=== PATIENT | female | born 1955 | race Two or more races ===

== ENCOUNTER 2017-06-10 08:24 | Outpatient (CLI) | payer OTHER ==
--- NOTE | 2017-06-10 09:14 | Diagnostic Imaging Report ---
Indications: Sinusitis and cough Technique: Spiral images obtained through the maxillofacial sinuses. No IV contrast utilized. Multiplanar reconstructions were generated.Total dose length product 526.47 mGycm. CTDIvol(s) 28.19 mGy. Dose reduction achieved using automated exposure control Comparison: none Findings: There is circumferential mucosal thickening of the bilateral maxillary sinuses. This appears to occlude the bilateral maxillary ostia. There is mucosal thickening of multiple ethmoid air cells. There is minimal mucosal thickening of the right sphenoid sinus. The frontal sinuses are clear. The nasal septum demonstrates only minimal rightward deviation anteriorly. The included orbits and optic globes are unremarkable. The facial No facial soft tissues appear unremarkable. There are questionable dental caries of the left first maxillary premolar and the left second maxillary molar and possibly the right first mandibular molar, although streak artifact from adjacent dental amalgam could be responsible for this appearance. The dentition is otherwise intact. No evidence of apical root abscess. The included intracranial structures appear unremarkable. Impression: Maxillary, ethmoid, and trace sphenoid sinus mucosal disease, as described Apparent occlusion of the bilateral maxillary ostia secondary to the above Questionable dental caries versus artifact. Correlate with clinical findings The CT scanner at [facility] is accredited by the [employer] and the scans are performed using protocols designed to limit radiation exposure to as low as reasonably achievable to attain images of sufficient resolution adequate for diagnostic evaluation.
== END 2017-06-10 10:24 | disposition home or self-care (01) ==
LOC: CAT 08:24
DX: J32.9 Chronic sinusitis, unspecified (principal)
CPT/HCPCS: 70486

== ENCOUNTER 2017-07-13 06:18 | Day surgery (SDC) | payer OTHER ==
--- NOTE | 2017-07-12 18:05 | Pre-Procedure Note/Attestation ---
Pre-Procedure Note/Attestation Complete Prior to Procedure Planned Procedure: bilateral Procedure Narrative: 1. Bilateral endoscopic sinus surgery 2. Septoplasty 3. Submucous resection right inferior turbinate 4. Submucous resection left inferior turbinate 5. Bilateral nasal antral windows Indications for Procedure Pre-Operative Diagnosis: 1. Chronic sinus blockage 2. Nasal septal deviation 3. Hypertrophied right inferior turbinate 4. Hypertrophied left inferior turbinate 5. Chronic sinus disease Attestation I attest that I discussed the nature of the procedure; its benefits; risks and complications; and alternatives (and the risks and benefits of such alternatives ), prior to the procedure, with the patient (or the patient's legal associate financial representative). I attest that, if there was a reasonable possibility of needing a blood transfusion, the patient (or the patient's legal associate financial representative) was given the [facility] standardized written summary, pursuant to the [place] Blood Safety Act ([place] Health and Safety Code # 1645, as amended). I attest that I re-evaluated the patient just prior to the surgery and that there has been no change in the patient's H&P, dictated by pts PMD, which has been sent to [facility] [employer]. RENETTA MAYFIELD July 12, 2017 18:05
--- NOTE | 2017-07-12 18:08 | Brief Operative Note ---
Immediate Post Operative Note Operative Note Chief Complaint: Chroinic headache, face pain Pre-op Diagnosis: 1. Chronic sinus blockage 2. Nasal septal deviation 3. Hypertrophied right inferior turbinate 4. Hypertrophied left inferior turbinate 5. Chronic sinus disease Procedure: 1. Bilateral endoscopic sinus surgery 2. Septoplasty 3. Submucous resection right inferior turbinate 4. Submucous resection left inferior turbinate 5. Bilateral nasal antral windows Post-op Diagnosis: same as pre-op Surgeon: Renetta Mayfield Manager Interventional: none Additional Surgeons: none Anesthesiologist: Jaycee Anesthesia: general Specimen: yes Complications: none Condition: stable Fluids: D5LR Estimated Blood Loss: volume - 30cc Drains: none Packing: Stamberger nasal gel Implant(s) used?: No RENETTA MAYFIELD July 12, 2017 18:08
--- NOTE | 2017-07-12 18:10 | Discharge Instructions ---
Discharge Instructions Discharge Instructions Follow up with: Dr. Mayfield next week-pt has appt already Diet: regular Resume Normal Activity?: No Activity: light activity Pneumonia Vaccine: pt refused vaccine Influenza Vaccine (Nov to Apr): pt refused vaccine Follow Up Orders Pt has printed post op instructions-which I reviewed and gave her at her pre op visit last week along with Rx for Amox and [place]. Return to Work/School on: Jul 27, 2017 Special Instructions Ice to face x 48 hours For Surgical Patients Dressing Care: may change May shower: No For Congestive Heart Failure Reminder Report to your physician any weight gain of 5 pounds or more in one week. RENETTA MAYFIELD July 12, 2017 18:10
[~2017-07-13] VITALS: Ht 162.6 cm; Wt 80.7 kg
[2017-07-13] VITALS (20 sets, daily range): BP systolic 121–174; BP diastolic 69–106
[2017-07-13] MEDS ORDERED: EPINEPHrine 1mg/1ml Amp ONE (07:05)
[2017-07-13] MEDS ORDERED: Bupivacaine 0.5% Inj 30 ml vial INJ ONE (07:05)
[2017-07-13] MEDS ORDERED: Lidocaine 1% 10mg/ml/Epi 0.005mg/ml 30ml vial INJ ONE (07:05)
[2017-07-13] MEDS ORDERED: Cocaine HCl 4% 4ml vial TOPIC ONE (07:05)
[2017-07-13] MEDS ORDERED: Midazolam 2mg/2ml Inj ONE (07:08)
[2017-07-13] MEDS ORDERED: Lidocaine 1% Plain 30 ml INJ ONE (07:09)
[2017-07-13] MEDS ORDERED: HYDROCHLOROTHIA25 MG ORAL (07:09)
[2017-07-13] MEDS ORDERED: fentaNYL 100 mcg/2 mL IV ONE (07:09)
[2017-07-13] MEDS ORDERED: Propofol 200mg/20ml IV ONE (07:09)
[2017-07-13] MEDS ORDERED: CARVEDILOL25 MG ORAL (07:09)
[2017-07-13] MEDS ORDERED: ceFAZolin sod 1 GM in D5W 55 ML IV ONE (07:15)
[2017-07-13] MEDS ORDERED: Sterile Water Irrig 1000ml IRRIG ONE (07:30)
[2017-07-13] MEDS ORDERED: Dexamethasone 4mg/ml vial IVP ONE (07:30)
[2017-07-13] MEDS ORDERED: NS Irrig 1000ml ONE (07:30)
[2017-07-13] MEDS ORDERED: LR 1000ml ONE (07:30)
[2017-07-13] MEDS ORDERED: ePHEDrine 50mg/ml Inj ONE (07:58)
[2017-07-13] MEDS ORDERED: LR 1000ml 1,000 ML IVLG SCH (08:07)
--- NOTE | 2017-07-13 08:13 | Anethesia Preoperative Eval ---
Anesthesia Pre-op PMH/ROS General Date of Evaluation: July 13, 2017 Time of Evaluation: 07:30 Anesthesiologist: Jaycee ASA Score: ASA 2 Mallampati Score Class I : Soft palate, uvula, fauces, pillars visible Class II: Soft palate, uvula, fauces visible Class III: Soft palate, base of uvula visible Class IV: Only hard plate visible Mallampati Classification: Class II Surgeon: Shabnam Diagnosis: Chronic sinusits Surgical Procedure: Septoplsty, SMR, bilateral turbinectomies Family History: no anesthesia problems Allergies: Coded Allergies: No Known Allergies (Unverified , 07/12/17) Medications: see eMAR Past Medical History Cardiovascular: Reports: HTN; Denies: CAD, [place], valve dz, arrhythmia, other Pulmonary: Denies: asthma, COPD, CLIVE, other Gastrointestinal/Genitourinary: Denies: GERD, CRI, ESRD, other Neurologic/Psychiatric: Denies: dementia, CVA, depression/anxiety, TIA, other HEENT: Denies: cataract (L), cataract (R), glaucoma, MINTO (L), MINTO (R), other Hematology/Immune: Denies: anemia, DVT, bleeding disorder, other Musculoskeletal/Integumentary: Denies: OA, RA, DJD, DDD, edema, other PMH Narrative: HTN, hypercholesterolemia PSxH Narrative: Cervicl fusion, AP, T&A Anesthesia Pre-op Phys. Exam Physician Exam Last Vital Signs Date Time Temp Pulse Resp B/P (MAP) Pulse Ox O2 Delivery O2 Flow Rate FiO2 07/13/17 07:06 97.9 56 18 121/77 95 Room Air 97.9 Constitutional: NAD Neurologic: CN 2-12 intact Cardiovascular: RRR, no M/R/G Gastrointestinal: S/NT/ND Airway Exam Mallampati Score: Class II MO: full ROM: full Teeth: intact Anesthesia Pre-op A/P Labs WNL Studies Pre-op Studies: EKG - LBBB, CXR - NAD Risk Assessment & Plan Assessment: Hypertensive female for sinus surgery Plan: GA, LMA Status Change Before Surgery: No Pre-Antibiotics Drug: Ancef Time Given: 07:50 Steve Champion MD July 13, 2017 08:13
--- NOTE | 2017-07-13 08:14 | Immediate Post-Op Evaluation ---
Immediate Post-Op Evalulation Immediate Post-Op Evalulation Procedure: Septoplasty, SMR, bilateral surbinectomies Date of Evaluation: July 13, 2017 Time of Evaluation: 08:50 IV Fluids: 700 Estimated Blood Loss: 30 Blood Pressure Systolic: 159 Blood Pressure Diastolic: 102 Pulse Rate: 60 Respiratory Rate: 15 O2 Sat by Pulse Oximetry: 97 Pain Score (1-10): 3 Nausea: No Vomiting: No Complications No complication Patient Status: awake, patent, none Hydration Status: adequate Drug: Ancef Given Within 1 Hr of Incision: Yes Time Given: 07:50 Steve Champion MD July 13, 2017 08:14
[2017-07-13] MEDS ORDERED: DiphenhydrAMINE 50mg/ml Inj IVP PRN (08:15)
[2017-07-13] MEDS ORDERED: Meperidine 50mg/ml Inj(FOR RIGORS ONLY) IVP SCH (08:15)
[2017-07-13] MEDS ORDERED: fentaNYL 100 mcg/2 mL IV PRN (08:15)
[2017-07-13] MEDS ORDERED: Metoclopramide 10mg/2ml Inj IVP PRN (08:45)
[2017-07-13] MEDS ORDERED: Norco 5mg/325mg tab ORAL PRN (08:45)
--- NOTE | 2017-07-13 08:50 | 48 Hour Post Anesthesia Eval ---
Post Anesthesia Evaluation Procedure: Septoplasty, SMR, bilateral surbinectomies Date of Evaluation: July 13, 2017 Time of Evaluation: 09:15 Blood Pressure Systolic: 147 0: 95 Pulse Rate: 59 Respiratory Rate: 18 O2 Sat by Pulse Oximetry: 97 Airway: patent Nausea: No Vomiting: No Pain Intensity: 2 Hydration Status: adequate Cardiopulmonary Status: Stable Mental Status/LOC: patient returned to baseline Follow-up Care/Observations: As per surgery Post-Anesthesia Complications: No anesthetic complication Follow-up care needed: N/A Steve Champion MD July 13, 2017 08:50
[2017-07-13] MEDS ORDERED: Dexamethasone 4mg/ml vial ONE (10:10)
[2017-07-13] MEDS ORDERED: Metoclopramide 10mg/2ml Inj ONE (11:03)
--- NOTE | 2017-07-13 12:45 | Operative Note - Dictated ---
DATE OF OPERATION: 07/13/2017 SURGEON: Bladimir Haque M.D. CHILD'S NURSE: None. ANESTHESIOLOGIST: Steve Champion M.D. ANESTHESIA: LMA general as well as 4 mL of 4% topical cocaine on nasal pledget and 15 mL, 50:50 mixture 1% lidocaine with 1:100,000 epinephrine and Marcaine 0.5% with 1:200,000 epinephrine. INDICATION FOR SURGERY: Chronic sinus pressure and pain. CT scan blocked ostiomeatal units. Septal deviation, hypertrophied right and left inferior turbinates. The patient understands that in her case, surgery has only a 50-50 chance of curing her symptoms but she understands that and has been pushing for the surgery. We have discussed the risks, benefits, and alternatives as well. PREOPERATIVE DIAGNOSES: 1. Bilateral blocked ostiomeatal units with maxillary sinus disease. 2. Septal deviation. 3. Hypertrophied right and left inferior turbinates. FINDINGS: Blocked ostiomeatal units, some disease in the maxillary sinuses worse in her left than her right. Culture sent for aerobic and anaerobic fungal as well as pathology. PROCEDURES: 1. Bilateral endoscopic sinus surgery. 2. Septoplasty. 3. Submucosal resection of right inferior turbinate. 4. Submucous resection of left inferior turbinate. 5. Bilateral nasal antral windows. TECHNIQUE: The patient was prepped and draped in the usual manner. Time-out was performed. All agreed as to the procedures to be done as well as the equipment required. Hank incision made on the left septum with a #15 blade elevated submucosally, removed the vomer on the left and sewn this back together with a 4-0 plain suture. Incision made on the right and left inferior turbinates with a #15 blade. I then tunneled with a radiofrequency wand #45, covered with saline gel, count of 10 seconds x2, at a setting of 6. Then both inferior turbinates were outfractured with a Boies elevator. I then medialized the middle and inferior turbinates, did nasal antral window under the inferior turbinate. Under direct endoscopic vision, opened up the ostiomeatal unit while visualizing from inside the maxillary sinus bilaterally with a 30 degree scope. I also cleaned out both maxillary sinuses. I then put the middle and inferior turbinate back in their normal anatomic position bilaterally. Stammberger nasal gel was then placed in either nostril. Sponge and needle count was correct. ESTIMATED BLOOD LOSS: 30 mL. COUNTS: None. DRAINS: None. Bladimir Haque M.D. DR: ABA JOB#: [id number] CC:
== END 2017-07-13 15:00 | disposition home or self-care (01) ==
LOC: SUR 06:18
DX: J32.0 Chronic maxillary sinusitis (principal); J34.2 Deviated nasal septum; J34.3 Hypertrophy of nasal turbinates; E78.5 Hyperlipidemia, unspecified; F32.9 Major depressive disorder, single episode, unspecified; I10 Essential (primary) hypertension; Z80.3 Family history of malignant neoplasm of breast; E78.00 Pure hypercholesterolemia, unspecified; Z98.1 Arthrodesis status
CPT/HCPCS: 30140; 30520; 31020; 87070; 87075; 87205; J0171; J0360; J0690; J1100; J2001; J2175; J2250; J2405; J2704; J2765; J3010; J3490; J7120; 94003; 94150

== ENCOUNTER 2017-09-15 02:35 | Emergency (ER) | payer BC, OTHER ==
[~2017-09-15] VITALS: Ht 162.6 cm; Wt 78.9 kg
[~2017-09-15 02:35] MED LIST: CARVEDILOL25 MG ORAL; HYDROCHLOROTHIA25 MG ORAL
[2017-09-15 03:12] LABS: BILIRUBIN, URINE 2+ (NEGATIVE); GLUCOSE, URINE (UA) NEGATIVE (NEGATIVE); KETONES,URINE NEGATIVE (NEGATIVE); LEUKOCYTE ESTERASE ,URINE 3+ (NEGATIVE); NITRITE,URINE POSITIVE (NEGATIVE); PH,URINE 8 (4.5-8.0); PROTEIN,URINE 3+ (NEGATIVE); UROBILINOGEN,URINE 8 MG/DL (0.0-1.0)
[2017-09-15 03:17] LABS: COLOR,URINE ORANGE
[2017-09-15 03:18] LABS: APPEARANCE,URINE SLIGHTLY CLOUDY
[2017-09-15] MEDS ORDERED: TYLENOL EXTRA500 MG ORAL (03:37)
[2017-09-15] MEDS ORDERED: PHENAZOPYRIDIN100 MG ORAL (03:37)
[2017-09-15] MEDS ORDERED: CEPHALEXIN500 MG ORAL (03:37)
[2017-09-15 03:46] VITALS: BP 131/97
--- NOTE | 2017-09-15 05:08 | Emergency Room Report ---
History of Present Illness General Chief Complaint: Female Urogenital Problems Source: Patient Present Illness HPI 62-year-old female presents ED complaining of burning urination 3 days. Notes suprapubic discomfort. Sharp, 9 out of 10, nonradiating. Denies flank pain. Denies fevers chills. She's been taking AZO otc with some relief . No other aggravating relieving factors. Denies any other associated symptoms Allergies: Coded Allergies: No Known Allergies (Unverified , 07/12/17) Patient History Past Medical History: HTN Past Surgical History: none Pertinent Family History: none Social History: Denies: smoking, alcohol use, drug use Last Menstrual Period: n/a Now: No Immunizations: UTD Reviewed Nursing Documentation: PMH: Agreed; PSxH: Agreed Nursing Documentation-PMH Past Medical History: No Stated History Hx Cardiac Problems: Yes Hx Hypertension: Yes Hx Cancer: No Hx Gastrointestinal Problems: No Hx Neurological Problems: No Review of Systems All Other Systems: negative except mentioned in HPI Physical Exam Vital Signs Date Time Temp Pulse Resp B/P (MAP) Pulse Ox O2 Delivery O2 Flow Rate FiO2 09/15/17 02:48 97.4 69 12 131/97 96 Room Air 97.3 Sp02 EP Interpretation: reviewed, normal General Appearance: no apparent distress, alert, GCS 15, non-toxic Head: normocephalic, atraumatic Eyes: bilateral eye normal inspection, bilateral eye PERRL ENT: hearing grossly normal, normal pharynx, no angioedema, normal voice Neck: full range of motion, supple/symm/no masses Respiratory: chest non-tender, lungs clear, normal breath sounds, speaking full sentences Cardiovascular #1: regular rate, rhythm, no edema Cardiovascular #2: 2+ carotid (R), 2+ carotid (L), 2+ radial (R), 2+ radial (L) , 2+ dorsalis pedis (R), 2+ dorsalis pedis (L) Gastrointestinal: normal bowel sounds, soft, non-distended, no guarding, no rebound, tenderness - supraupbic Rectal: deferred Genitourinary: normal inspection, no CVA tenderness Musculoskeletal: back normal, gait/station normal, normal range of motion, non- tender Neurologic: alert, oriented x3, responsive, motor strength/tone normal, sensory intact, speech normal Psychiatric: judgement/insight normal, memory normal, mood/affect normal, no suicidal/homicidal ideation Reflexes: 3+ bicep (R), 3+ bicep (L), 3+ tricep (R), 3+ tricep (L), 3+ knee (R) , 3+ knee (L) Skin: normal color, no rash, warm/dry, well hydrated Lymphatic: no adenopathy Medical Decision Making Diagnostic Impression: Primary Impression: UTI (urinary tract infection) Qualified Codes: N39.0 - Urinary tract infection, site not specified ER Course Hospital Course 62-year-old female presents to ED complaining of dysuria with suprapubic pain. Differential diagnoses include: UTI, cystitis, pyelonephritis Clinical course Patient placed on stretcher. After initial history and physical I ordered UA, tylenol UA + bacteria. we will discharge with abx. patient safe for discharge with close outpatient followup Diagnosis - UTI Stable and discharged home with prescriptions for Rx keflex, tylenol. Instructed to followup with PMD. Return to ED if symptoms recur or worsen Labs Test 09/15/17 03:10 Urine Color [place] Urine Appearance Slightly cloudy Urine pH 8 (4.5-8.0) Urine Specific [place] 1.015 (1.005-1.035) Urine Protein 3+ (NEGATIVE) Urine Glucose (UA) Negative (NEGATIVE) Urine Ketones Negative (NEGATIVE) Urine Occult Blood 5+ (NEGATIVE) Urine Nitrite Positive (NEGATIVE) Urine Bilirubin 2+ (NEGATIVE) Urine Ictotest Positive Urine Urobilinogen 8 MG/DL (0.0-1.0) Urine Leukocyte Esterase 3+ (NEGATIVE) Urine RBC 15-20 /HPF (0 - 2) Urine WBC Tntc /HPF (0 - 2) Urine Squamous Epithelial Cells None /LPF (NONE/OCC) Urine Bacteria Moderate /HPF (NONE) Last Vital Signs Date Time Temp Pulse Resp B/P (MAP) Pulse Ox O2 Delivery O2 Flow Rate FiO2 09/15/17 03:46 207.3 12 131/97 96 Room Air 207.3 09/15/17 03:46 89 Status: improved Disposition: HOME, SELF-CARE Condition: Stable Scripts Acetaminophen* (TYLENOL EXTRA STRENGTH*) 500 Mg Tablet 500 MG ORAL Q8H PRN for Prn Headache/Temp > 101, #30 TAB 0 Refills Prov: Jacques Nichols MD 09/15/17 Phenazopyridine Hcl* (PYRIDIUM*) 100 Mg Tablet 100 MG ORAL THREE TIMES A DAY for 3 Days, TAB Prov: Jacques Nichols MD 09/15/17 Cephalexin* (KEFLEX*) 500 Mg Capsule 500 MG ORAL EVERY 6 HOURS for 7 Days, CAP Prov: Jacques Nichols MD 09/15/17 Patient Instructions: Urinary Tract Infection Jacques Nichols MD Sep 15, 2017 05:08
== END 2017-09-15 03:47 | disposition home or self-care (01) ==
LOC: EMR 03:25
DX: N39.0 Urinary tract infection, site not specified (principal); I10 Essential (primary) hypertension
CPT/HCPCS: 81003; 87086; 99284

== ENCOUNTER 2017-09-27 22:35 | Emergency (ER) | payer BC ==
[~2017-09-27] VITALS: Ht 162.6 cm; Wt 78.9 kg
[~2017-09-27 22:35] MED LIST changes: +CEPHALEXIN500 MG ORAL; +PHENAZOPYRIDIN100 MG ORAL; +TYLENOL EXTRA500 MG ORAL
--- NOTE | 2017-09-27 23:09 | Emergency Room Report ---
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 She presents with left scapular pain. Onset yesterday. Is sharp in nature. Worse with certain movement. Waiting to her shoulder and arm. No chest pain. No diaphoresis but no exertional component. No shortness of breath. Similar symptom a few years ago. Denies any other complaint. No family history of DVT or PE Allergies: Coded Allergies: No Known Allergies (Unverified , 07/12/17) Patient History Past Medical History: see triage record, old chart reviewed Past Surgical History: other Pertinent Family History: none Social History: Denies: smoking Last Menstrual Period: n/a Now: No Immunizations: other Reviewed Nursing Documentation: PMH: Agreed; PSxH: Agreed Nursing Documentation-PMH Hx Cardiac Problems: Yes Hx Hypertension: Yes Hx Cancer: No Hx Gastrointestinal Problems: No Hx Neurological Problems: No Review of Systems Eye: Denies: eye pain, blurred vision ENT: Denies: ear pain, nose congestion, throat swelling Respiratory: Denies: cough, shortness of breath Cardiovascular: Denies: chest pain, palpitations Gastrointestinal: Denies: abdominal pain, diarrhea, nausea, vomiting Musculoskeletal: Reports: back pain; Denies: joint pain Skin: Denies: rash Neurological: Denies: headache, numbness Endocrine: Denies: increased thirst, increased urine Hematologic/Lymphatic: Denies: easy bruising All Other Systems: negative except mentioned in HPI Physical Exam Vital Signs Date Time Temp Pulse Resp B/P (MAP) Pulse Ox O2 Delivery O2 Flow Rate FiO2 09/27/17 22:44 97.9 68 18 120/86 96 Room Air 97.9 vitals normal Sp02 EP Interpretation: reviewed, normal General Appearance: well appearing, no apparent distress, alert Head: normocephalic, atraumatic Eyes: bilateral eye PERRL, bilateral eye EOMI ENT: hearing grossly normal, normal pharynx Neck: full range of motion, supple, no meningismus Respiratory: chest non-tender, lungs clear, normal breath sounds Cardiovascular #1: regular rate, rhythm, no murmur Gastrointestinal: normal bowel sounds, non tender, no mass, no organomegaly, no bruit, non-distended Musculoskeletal: back normal - Tenderness over the left mid scapular area, gait /station normal, normal range of motion Neurologic: alert, oriented x3 Psychiatric: mood/affect normal Skin: warm/dry Medical Decision Making Diagnostic Impression: Primary Impression: Chest pain Qualified Codes: R07.9 - Chest pain, unspecified ER Course Patient presents with upper back pain that radiated to her chest and neck area. Pain is reproducible and been constant for 2 days. Unlikely to be ACS, PE, dissection to name a few. We'll discharge home. If continue, will need further workup like a stress test. Lab Results Impression labs normal EKG Diagnostic Results Rate: normal Rhythm: NSR ST Segments: no acute changes Other Impression left bundle branch block Rhythm Strip Diag. Results Rhythm Strip Time: 00:05 EP Interpretation: yes Rate: 60 Rhythm: NSR, no PVC's, no ectopy Chest X-Ray Diagnostic Results Chest X-Ray Diagnostic Results : Chest X-Ray Ordered: Yes # of Views/Limited/Complete: 1 View Indication: Chest Pain EP Interpretation: Yes Interpretation: no consolidation, no effusion, no pneumothorax, no acute cardiopulmonary disease Impression: No acute disease Electronically Signed by: Nils Mirza MD Last Vital Signs Date Time Temp Pulse Resp B/P (MAP) Pulse Ox O2 Delivery O2 Flow Rate FiO2 09/27/17 22:44 97.9 68 18 120/86 96 Room Air 97.9 Status: improved Disposition: HOME, SELF-CARE Condition: Stable Scripts Ibuprofen* (MOTRIN*) 600 Mg Tablet 600 MG ORAL Q8H PRN for For Pain, #30 TAB 0 Refills Prov: NILS MIRZA M.D. 09/28/17 Patient Instructions: Nonspecific Chest Pain Additional Instructions: Follow-up with your DrRizwan in 2-3 days if not better. Return if symptom worsen. NILS MIRZA M.D. Sep 27, 2017 23:09
[2017-09-27] MEDS ORDERED: Ketorolac 30mg Inj IV ONE (23:15)
[2017-09-27 23:27] LABS: BASOPHILS % (AUTO) 1.5 % (0.0-2.0); EOSINOPHILS % (AUTO) 3.6 % (0.0-3.0); HEMATOCRIT 42.2 % (37.0-47.0); HEMOGLOBIN 14.6 G/DL (12.0-16.0); MEAN CORPUSCULAR VOLUME 93 FL (80-99); MONOCYTES % (AUTO) 6.6 % (1.0-10.0); NEUTROPHILS % (AUTO) 54.3 % (45.0-75.0); PLATELET COUNT 279 K/UL (150-450); RED BLOOD COUNT 4.53 M/UL (4.20-5.40); RED CELL DISTRIBUTION WIDTH 11.4 % (11.6-14.8); WHITE BLOOD COUNT 7.6 K/UL (4.8-10.8)
[2017-09-27 23:33] LABS: ANION GAP 10 mmol/L (5-15); BLOOD UREA NITROGEN 12 mg/dL (7-18); CALCIUM 9.3 MG/DL (8.5-10.1); CARBON DIOXIDE 28 MMOL/L (21-32); CHLORIDE 103 MMOL/L (98-107); CREATININE 0.9 MG/DL (0.55-1.30); POTASSIUM 3.6 MMOL/L (3.5-5.1); SODIUM 141 MMOL/L (136-145)
[2017-09-27 23:39] VITALS: BP 122/88
[2017-09-27 23:46] LABS: ALANINE AMINOTRANSFERASE 23 U/L (12-78); ALBUMIN 3.8 G/DL (3.4-5.0); ALBUMIN/GLOBULIN RATIO 0.9 (1.0-2.7); ALKALINE PHOSPHATASE 80 U/L (46-116); ASPARTATE AMINO TRANSFERASE 18 U/L (15-37); BILIRUBIN,TOTAL 0.4 MG/DL (0.2-1.0); CKMB 0.8 NG/ML (0.0-3.6); CREATINE KINASE 79 U/L (26-308)
[2017-09-28] MEDS ORDERED: IBUPROFEN600 MG ORAL (00:06)
[2017-09-28 00:18] VITALS: BP 122/88
--- NOTE | 2017-09-28 10:37 | Diagnostic Imaging Report ---
Indication: Shortness of breath Technique: XRAY Chest 1v Comparison: None Findings: Heart size and mediastinal contours are within normal limits for AP technique. There is no focal consolidation, pneumothorax or pleural effusion. Evidence of prior cervical surgery with with plate and screws. Osseous structures demonstrate no acute abnormality. Impression: No radiographic evidence of acute cardiopulmonary disease.
--- NOTE | 2017-09-29 16:08 | Cardiology Report ---
APPROVED REPORT EKG Measurement Heart [id number] Sinus bradycardia Left axis deviation Left bundle branch block Abnormal ECG
== END 2017-09-28 00:17 | disposition home or self-care (01) ==
LOC: EMR 23:00
DX: R07.9 Chest pain, unspecified (principal); I10 Essential (primary) hypertension
CPT/HCPCS: 36415; 71045; 80053; 82550; 82553; 84484; 85025; 85379; 93005; 99283; J1885

== ENCOUNTER 2020-03-07 12:06 | Emergency (ER) | payer BC ==
[~2020-03-07] VITALS: Ht 162.6 cm; Wt 73.5 kg
[~2020-03-07 12:06] MED LIST changes: +IBUPROFEN600 MG ORAL
[2020-03-07 12:15] VITALS: BP 122/89
--- NOTE | 2020-03-07 12:15 | NUR ---
ED Nurse Note: Pt walked in to ED for monocloneal antibody infusion and was referred by her PCP. pt tested positive for Covid last 03/06/20. Pt c/o bodyaches, coughing and headache. Afebrile. AAOx4, verbally responsive. No SOB, on room air. ERMD at bedside. Isolation precaution is observed.
[2020-03-07] MEDS ORDERED: Bamlanivimab Fact Sheet MISC ONE (12:30)
[2020-03-07] MEDS ORDERED: Bamlanivimab 700 MG in NS 275 ML IVPB SCH (12:30)
--- NOTE | 2020-03-07 12:33 | NUR ---
ED Nurse Note: IV line established. Blood sent to lab.
--- NOTE | 2020-03-07 12:50 | Emergency Room Report ---
History of Present Illness General Chief Complaint: Upper Respiratory Illness Source: Patient Present Illness HPI patient presents from [facility] with positive covid test. She was tested positive on wednesday and had no symptoms till several days ago. 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 COVID-19 Screening: Positive COVID-19 COVID-19 Testing Source: 03/06/20 Patient History Past Medical History: see triage record Pertinent Family History: none Reviewed Nursing Documentation: PMH: Agreed; PSxH: Agreed Nursing Documentation-PM Past Medical History: No History, Except For Hx Cardiac Problems: Yes Hx Hypertension: Yes Hx Cancer: No Hx Gastrointestinal Problems: No Hx Neurological Problems: No Review of Systems All Other Systems: negative except mentioned in HPI Physical Exam Vital Signs Date Time Temp Pulse Resp B/P (MAP) Pulse Ox O2 Delivery O2 Flow Rate FiO2 03/07/20 12:12 97.7 58 15 122/89 (100) 94 Room Air Sp02 EP Interpretation: reviewed, normal General Appearance: well appearing, no apparent distress Head: normocephalic, atraumatic Eyes: bilateral eye PERRL, bilateral eye EOMI ENT: hearing grossly normal, normal pharynx, TMs + canals normal, uvula midline Neck: full range of motion, supple, no meningismus, no bony tend Respiratory: no rhonchi, no respiratory distress, no retraction, no accessory muscle use, crackles - mild bilaterally Cardiovascular #1: normal peripheral pulses, regular rate, rhythm, no edema, no gallop, no JVD, no murmur Gastrointestinal: normal bowel sounds, non tender, soft, no mass, no organomegaly, non-distended, no guarding, no hernia, no pulsatile mass, no rebound Genitourinary: no CVA tenderness Musculoskeletal: normal inspection Neurologic: motor strength/tone normal, architect internship III-XII nml as tested, oriented x3, sensory intact, responsive Psychiatric: mood/affect normal Skin: no rash Lymphatic: normal inspection, no adenopathy Medical Decision Making Diagnostic Impression: Primary Impression: Upper respiratory infection ER Course multiple differentials entertained, including but not limited to cardiac, cardiopulmonary other infectious process patient is saturating well hemodynamically stable 64 yo with HTN, meeting outpatient process and Bamlanivimab infusion. Patient provided with Fact sheet and understands this is an EUA medication Patient has transfusion and infusion per protocol has done well does not show any signs of adverse reaction and discharged for close outpatient follow-up Labs Test 03/07/20 12:33 White Blood Count 5.3 K/UL (4.8-10.8) Red Blood Count 4.74 M/UL (4.20-5.40) Hemoglobin 14.9 G/DL (12.0-16.0) Hematocrit 45.5 % (37.0-47.0) Mean Corpuscular Volume 96 FL (80-99) Mean Corpuscular Hemoglobin 31.4 PG (27.0-31.0) Mean Corpuscular Hemoglobin Concent 32.7 G/DL (32.0-36.0) Red Cell Distribution Width 11.9 % (11.6-14.8) Platelet Count 189 K/UL (150-450) Mean Platelet Volume 8.1 FL (6.5-10.1) Neutrophils (%) (Auto) 68.2 % (45.0-75.0) Lymphocytes (%) (Auto) 22.6 % (20.0-45.0) Monocytes (%) (Auto) 6.4 % (1.0-10.0) Eosinophils (%) (Auto) 2.1 % (0.0-3.0) Basophils (%) (Auto) 0.7 % (0.0-2.0) Sodium Level 140 MMOL/L (136-145) Potassium Level 4.5 MMOL/L (3.5-5.1) Chloride Level 104 MMOL/L (98-107) Carbon Dioxide Level 28 MMOL/L (21-32) Anion Gap 8 mmol/L (5-15) Blood Urea Nitrogen 11 mg/dL (7-18) Creatinine 0.9 MG/DL (0.55-1.30) Estimat Glomerular Filtration Rate > 60 mL/min (>60) Glucose Level 126 MG/DL (74-106) Calcium Level 9.4 MG/DL (8.5-10.1) Total Bilirubin 1.0 MG/DL (0.2-1.0) Aspartate Amino Transf (AST/SGOT) 29 U/L (15-37) Alanine Aminotransferase (ALT/SGPT) 38 U/L (12-78) Alkaline Phosphatase 70 U/L (46-116) Total Protein 7.3 G/DL (6.4-8.2) Albumin 3.5 G/DL (3.4-5.0) Globulin 3.8 g/dL Albumin/Globulin Ratio 0.9 (1.0-2.7) Last Vital Signs Date Time Temp Pulse Resp B/P (MAP) Pulse Ox O2 Delivery O2 Flow Rate FiO2 03/07/20 12:15 58 15 Room Air 03/07/20 12:15 97.7 122/89 94 Status: improved Disposition: HOME, SELF-CARE Condition: Improved Additional Instructions: follow up PMD tomorrow, return to Er with any concerns Nguyen Davalos DO Mar 07, 2020 12:50
[2020-03-07 12:56] LABS: BASOPHILS % (AUTO) 0.7 % (0.0-2.0); EOSINOPHILS % (AUTO) 2.1 % (0.0-3.0); HEMATOCRIT 45.5 % (37.0-47.0); HEMOGLOBIN 14.9 G/DL (12.0-16.0); LYMPHOCYTES % (AUTO) 22.6 % (20.0-45.0); MEAN CORPUSCULAR VOLUME 96 FL (80-99); MONOCYTES % (AUTO) 6.4 % (1.0-10.0); NEUTROPHILS % (AUTO) 68.2 % (45.0-75.0); PLATELET COUNT 189 K/UL (150-450); RED BLOOD COUNT 4.74 M/UL (4.20-5.40); RED CELL DISTRIBUTION WIDTH 11.9 % (11.6-14.8); WHITE BLOOD COUNT 5.3 K/UL (4.8-10.8)
[2020-03-07 13:01] LABS: ANION GAP 8 mmol/L (5-15); BLOOD UREA NITROGEN 11 mg/dL (7-18); CALCIUM 9.4 MG/DL (8.5-10.1); CARBON DIOXIDE 28 MMOL/L (21-32); CHLORIDE 104 MMOL/L (98-107); CREATININE 0.9 MG/DL (0.55-1.30); POTASSIUM 4.5 MMOL/L (3.5-5.1); SODIUM 140 MMOL/L (136-145)
[2020-03-07 13:06] LABS: ALANINE AMINOTRANSFERASE 38 U/L (12-78); ALBUMIN 3.5 G/DL (3.4-5.0); ALBUMIN/GLOBULIN RATIO 0.9 (1.0-2.7); ALKALINE PHOSPHATASE 70 U/L (46-116); ASPARTATE AMINO TRANSFERASE 29 U/L (15-37)
[2020-03-07 15:30] VITALS: BP 125/74
--- NOTE | 2020-03-07 15:30 | NUR ---
ED Nurse Note: Pt cleared by ERMD for discharge. DC instructions was given and explained to pt and verbalized understanding of teachings. All medical deviecs such as ID band and IV line removed. Pt is AAO x4, ambulatory and left with all personal belongings.
== END 2020-03-07 15:30 | disposition home or self-care (01) ==
LOC: EMR 12:49
DX: U07.1 COVID-19 (principal); J06.9 Acute upper respiratory infection, unspecified; I11.9 Hypertensive heart disease without heart failure; Z23 Encounter for immunization
CPT/HCPCS: 36415; 80053; 85025; 96365; 99284; J7050; Q0239